=== PATIENT | male | born 1960 | race Caucasian/White ===

== ENCOUNTER → 2019-09-29 | Outpatient (CLI) | payer BC ==
[~2019-09-29] MED LIST: AMLO5TAB2 GT; LISI1TAB10 PO; VNL75CCR PO
--- NOTE | 2019-09-29 14:02 | Diagnostic Imaging Report ---
PROCEDURE: US Thyroid. TECHNIQUE: Multiple real-time grayscale images were obtained of the thyroid in various projections. INDICATION: Abnormal thyroid function tests. COMPARISON: June 09, 2012. FINDINGS: The right thyroid measures 3.5 x 1.5 x 1.8 cm. The left thyroid measures 3.7 x 1.3 x 1.6 cm. Background echotexture of the thyroid appears homogenous. No nodules are seen bilaterally. Vascularity appears normal and symmetric. There is mild prominence of the isthmus at 6 mm, with no nodule seen. IMPRESSION: 1. Unremarkable thyroid ultrasound. Dictated by: Dictated on workstation # [id number]
== END ==
LOC: RAD 12:31
PROVIDERS: ATTEND Family Medicine
DX: R94.6 Abnormal results of thyroid function studies (principal)
CPT/HCPCS: 76536